=== PATIENT | male | born 1975 | race Caucasian/White ===

== ENCOUNTER 2019-07-02 18:03 | Emergency (ER) | payer MEDICAID ==
[2019-07-02] MEDS ORDERED: KETOROLAC 30 MG/ML VIAL IVP ONE (19:56)
[2019-07-02] MEDS ORDERED: DIAZEPAM (VALIUM) 5MG/ML **10ML VIAL IVP ONE (19:56)
--- NOTE | 2019-07-02 19:56 | Emergency Department Record ---
History of Present Illness - General Chief Complaint: Back Pain/Injury Stated Complaint: BACK PAIN Time Seen by Provider: 07/02/19 19:46 Source: Patient Mode of Arrival: Ambulatory Limitations: No limitations - History of Present Illness Initial Comments: Pt woke this AM with mid back pain. No trauma or injury. Pain is without radiation. No abd pain. No fever. No arm or leg pains. No weakness. No ESPINOSA. Took OTC motrin without relief. Pt relates missing his "Methadone" dose for two days. Hx of pain med abuse "pills only", denies hx of IV drug use. No prior treatment or eval for this episode of pain. Pt has seizure disorder with last seizure 8 months ago. Onset/Timin -: Hour(s) Similar Symptoms Previously: Yes Radiation: None Severity: Moderate Severity scale (1-10): 8 Quality: Aching, Sharp Consistency: Constant Improves With: None Worsens With: Movement, Sitting upright Context: Unknown Associated Symptoms: Denies other symptoms Treatments Prior to Arrival: NSAIDS - Related Data Home Medications Medication Instructions Recorded Confirmed Last Taken Levetiracetam [Keppra] 1 tab PO DAILY 07/02/19 07/02/19 Unknown Methadone HCl 40 mg PO DAILY 07/02/19 07/02/19 Unknown Previous Rx's Medication Instructions Recorded Ibuprofen [Motrin 600Mg] 600 mg PO Q8H #30 tablet 07/02/19 Metaxalone [Skelaxin] 800 mg PO TID 4 Days #12 tablet 07/02/19 Allergies Allergy/AdvReac Type Severity Reaction Status Date / Time No Known Drug Allergies Allergy Verified 03/24/16 20:16 Travel Screening - Travel/Exposure Within Last 30 Days Have you traveled within the last 30 days?: No - Travel/Exposure Within Last Year Have you traveled outside the [place] in the last year?: No - Additonal Travel Details Have you been exposed to anyone with a communicable illness?: No - Travel Symptoms Symptom Screening: None Review of Systems Constitutional: Denies: Chills, Fever, Night sweats, Weakness Eyes: Denies: Eye discharge ENT: Denies: Congestion Respiratory: Denies: Cough Cardiovascular: Denies: Arrhythmia Endocrine: Denies: Fatigue Gastrointestinal: Denies: Abdominal pain, Constipation, Diarrhea, Nausea, Vomiting Genitourinary: Denies: Dysuria, Hematuria Musculoskeletal: Reports: As per HPI Skin: Denies: Bruising, Rash Neurological: Reports: Seizure. Denies: Abnormal gait, Headache, Numbness, Paresthesias, Tingling, Tremors, Weakness Psychiatric: Denies: Anxiety Hematological/Lymphatic: Denies: Anemia Past Medical History - SOCIAL HISTORY Smoking Status: Light tobacco smoker (<10/day) Alcohol Use: None Drug Use: Occasional Drug Use Detail:: Marijuana - RESPIRATORY Hx Respiratory Disorders: No - CARDIOVASCULAR Hx Cardio Disorders: Yes Comment:: murmur - NEURO Hx Neuro Disorders: Yes Hx Seizures: Yes - GI Hx GI Disorders: Yes Hx Reflux: Yes Comment:: Barrets esophagus - Hx Genitourinary Disorders: No - ENDOCRINE Hx Endocrine Disorders: No Hx Diabetes: No Hx Thyroid Disease: No - MUSCULOSKELETAL Hx Musculoskeletal Disorders: Yes - PSYCH Hx Psych Problems: Yes Hx Anxiety: Yes Hx Depression: Yes Comment:: methadone clinic patient - HEMATOLOGY/ONCOLOGY Hx Hematology/Oncology Disorders: No Family Medical History Any Significant Family History?: Yes Hx Anxiety: Brother/Sister Hx Cancer: Grandparents Hx Depression: Brother/Sister Hx HTN: Brother/Sister Physical Exam - General General Appearance: Alert, Oriented x3, Cooperative, Moderate distress - Head Head exam: Atraumatic, Normocephalic - Eye Eye exam: Normal appearance, PERRL - ENT ENT exam: Normal exam, Mucous membranes moist, Normal external ear exam, Normal orophraynx - Neck Neck exam: Normal inspection, Full ROM. negative: Lymphadenopathy, Tenderness - Respiratory Respiratory exam: Normal lung sounds bilaterally. negative: Respiratory distress - Cardiovascular Cardiovascular Exam: Regular rate, Normal rhythm, Normal heart sounds - GI/Abdominal GI/Abdominal exam: Soft, Normal bowel sounds. negative: Tenderness - Extremities Extremities exam: Normal inspection, Full ROM, Normal capillary refill. negative: Pedal edema, Tenderness - Back Back exam: Reports: Muscle spasm (T12 L1 level without skin lesions. Bilateral pain. ), Paraspinal tenderness. Denies: Vertebral tenderness - Neurological Neurological exam: Alert, Normal gait, Oriented X3 - Psychiatric Psychiatric exam: Anxious. negative: Normal affect, Normal mood - Skin Skin exam: Normal color. negative: Rash Course Vital Signs 07/02/19 07/02/19 18:50 19:05 Temperature 98.3 F 98.6 F Pulse Rate 71 Pulse Rate [ 52 L Pulse Ox Probe] Respiratory 24 18 Rate Blood Pressure 145/97 Blood Pressure 166/90 [Left Arm] Pulse Ox 99 100 - Reevaluation(s) Reevaluation #1: 07/02/19 20:36 meds for 20-30 min and slight improved. resting. Reevaluation #2: 07/02/19 21:12 Feeling some better. Sister at bedside. Home with meds Disposition Disposition: Discharge Clinical Impression: Back pain Qualifiers: Back pain location: thoracic back pain Chronicity: acute Back pain laterality: bilateral Qualified Code(s): M54.6 - Pain in thoracic spine Condition: (2) Stable Instructions: Back Pain (ED), Cold Compress or Soak (ED) Additional Instructions: Ice ot area. Take meds as instructed. Family doctor as needed Return to the ED if worse or concerns Prescriptions: Ibuprofen [Motrin 600Mg] 600 mg PO Q8H #30 tablet Metaxalone [Skelaxin] 800 mg PO TID 4 Days #12 tablet Forms: Patient Portal Access Time of Disposition: 21:12 Quality - Quality Measures Quality Measures: N/A - Blood Pressure Screening Does Patient Have Any of the Following: No Blood Pressure Classification: Hypertensive Reading Systolic Measurement: 145 Diastolic Measurement: 97 Screening for High Blood Pressure: < Pre-Hypertensive BP, F/U Documented > [[id number]] Pre-Hypertensive Follow-up Interventions: Follow-up with rescreen every year.
== END 2019-07-02 21:25 | disposition home or self-care (01) ==
LOC: ER 18:03
DX: M54.6 Pain in thoracic spine (principal); F17.210 Nicotine dependence, cigarettes, uncomplicated
CPT/HCPCS: 96374; 96375; 99284; J1885; J3360